=== PATIENT | female | born 1950 | race Two or more races ===

== ENCOUNTER 2019-03-07 13:21 | Inpatient (IN) | payer MEDICARE, MEDICAID ==
[~2019-03-07] VITALS: Ht 165.1 cm; Wt 93.9 kg
--- NOTE | 2019-03-07 13:34 | NUR ---
BIB [facility] FROM HOME, C/O GENERALIZED BODY ACHES AND L SIDED ABDOMINAL PAIN. ALSO NOT ABLE TO TAKE CARE OF HERSELF HENCE WANTS TO BE PLACED TO A SNF. ALSO RAN OUT OF MEDICATIONS. TO ER BED 4, HOOKED TO MONITOR, CHANGED TO GOWN, WARM BLANKET PROVIDED. AWAITING MD [place].
--- NOTE | 2019-03-07 13:34 | NUR ---
MACHINE MAINTENANCE MECHANIC DEGRASSE AT BEDSIDE
[2019-03-07 13:52] LABS: BASOPHILS # (AUTO) 0.1 /CMM (0.0-0.2); BASOPHILS % (AUTO) 0.7 % (0.0-2.0); HEMATOCRIT 37 % (33-45); LYMPHOCYTES % (AUTO) 26.1 % (20.0-44.0); MEAN CORPUSCULAR HGB CONC 33 g/dl (31.0-36.0); MEAN CORPUSCULAR VOLUME 87 fL (82-100); MONOCYTES # (AUTO) 0.5 /CMM (0.1-1.30); MONOCYTES % (AUTO) 6.3 % (2.0-12.0); NEUTROPHILS # (AUTO) 4.9 /CMM (1.8-8.9); NEUTROPHILS % (AUTO) 62.9 % (43.0-81.0); PLATELET COUNT (AUTO) 247 /CMM (150-450); RED BLOOD CELL COUNT(AUTO) 4.25 MIL/uL (4.0-5.2); WHITE BLOOD COUNT (AUTO) 7.8 K/uL (4.3-11.0)
[2019-03-07] MEDS ORDERED: IV NS 0.9% 1,000 ML BAG IV ONE (14:00)
[2019-03-07] MEDS ORDERED: AMLO5TAB9 PO (14:01)
[2019-03-07] MEDS ORDERED: PRAV20TA4 PO (14:01)
[2019-03-07] MEDS ORDERED: OMEP40CA13 PO (14:01)
[2019-03-07] MEDS ORDERED: TRAZ-214 PO (14:01)
[2019-03-07] MEDS ORDERED: ALBU18HF2 IH (14:01)
[2019-03-07] MEDS ORDERED: METF-442 PO (14:01)
[2019-03-07] MEDS ORDERED: CYCL5TAB PO (14:01)
[2019-03-07] MEDS ORDERED: PROP20TA7 PO (14:01)
[2019-03-07] MEDS ORDERED: LOSA100T31 PO (14:01)
[2019-03-07] MEDS ORDERED: SITA100T PO (14:01)
[2019-03-07] MEDS ORDERED: CLOP75TA15 PO (14:01)
[2019-03-07] MEDS ORDERED: DOCU-141 PO (14:01)
[2019-03-07] MEDS ORDERED: MULT-447 PO (14:01)
[2019-03-07] MEDS ORDERED: METF-440 PO (14:01)
[2019-03-07] MEDS ORDERED: NYST15CR TP (14:01)
[2019-03-07] MEDS ORDERED: TRIA80OI TP (14:01)
[2019-03-07] MEDS ORDERED: POTA10TA15 PO (14:01)
[2019-03-07] MEDS ORDERED: ACET-868 PO (14:01)
[2019-03-07] MEDS ORDERED: LORA1TAB PO (14:01)
[2019-03-07] MEDS ORDERED: DULO60CA45 PO (14:01)
--- NOTE | 2019-03-07 14:01 | NUR ---
WHEELED OUT VIA RNEY FOR CT SCAN
[2019-03-07] MEDS ORDERED: INSU100V10 SQ (14:03)
[2019-03-07] MEDS ORDERED: INSU100V11 SQ (14:03)
[2019-03-07 14:06] LABS: CALCIUM, SERUM 9.2 mg/dL (8.5-10.1); CREATININE 0.5 mg/dL (0.6-1.3); POTASSIUM 4.4 mmol/L (3.5-5.1)
[2019-03-07 14:12] LABS: ALBUMIN 3.2 g/dL (3.4-5.0); BILIRUBIN,DIRECT 0.1 mg/dL (0.0-0.2); BILIRUBIN,TOTAL 0.4 mg/dL (0.2-1.0); TOTAL PROTEIN, SERUM 6.9 g/dL (6.4-8.2)
--- NOTE | 2019-03-07 14:40 | NUR ---
URINE SAMPLE COLLECTED VIA STRAIGHT CATHETER, SENT TO LAB
[2019-03-07 14:56] LABS: APPEARANCE,URINE Slightly Cloudy (CLEAR); BILIRUBIN,URINE Negative (NEGATIVE); BLOOD, URINE Trace-intact Ery/uL (NEGATIVE); COLOR,URINE Yellow (YELLOW); KETONES,URINE Negative (NEGATIVE); LEUKOCYTE ESTERASE ,URINE Trace (NEGATIVE); NITRITE, URINE Positive (NEGATIVE); PH,URINE 6.5 (5.0-8.0); PROTEIN,URINE Trace mg/dl (NEGATIVE); UGLUCOSE Negative (NEGATIVE); UROBILINOGEN,URINE 0.2 EU/dL (0.2)
[2019-03-07 15:08] LABS: BACTERIA,URINE Many /HPF (None Seen); WBC,URINE 21-50 /HPF (0-3)
[2019-03-07 15:09] LABS: SQUAMOUS EPITHELIAL CELL,UR Moderate /HPF (None Seen)
[2019-03-07] MEDS ORDERED: CEFTRIAXONE 1GM BAG (ER ONLY) 50 ML IV ONE (15:28)
[2019-03-07] MEDS ORDERED: CEFTRIAXONE 1GM BAG (ER ONLY) 1 GM/50 ML PIGGYBACK IV ONE (15:30)
--- NOTE | 2019-03-07 15:30 | NUR ---
[facility] PAGED- REFRIGERATION SPECIALIST - TERRY CHUN
--- NOTE | 2019-03-07 15:48 | NUR ---
Reyes oglesby in [facility] - 03/07/19 at 1548 by MALLY REPORT GIVEN TO BLANCA OF MS UNIT
[2019-03-07] MEDS ORDERED: ACETAMINOPHEN ES 500 MG TABLET ONE (15:53)
[2019-03-07] MEDS ORDERED: ACETAMINOPHEN ES 500 MG TABLET PO ONE (16:00)
--- NOTE | 2019-03-07 16:13 | NUR ---
REPORT GIVEN TO DANIELE OF MS UNIT
[2019-03-07 16:30] VITALS: BP 120/65
[2019-03-07] MEDS ORDERED: HYDROCODONE/APAP 5/325MG 1 EACH TABLET PO PRN (16:30)
[2019-03-07] MEDS ORDERED: TRIAMCINOLONE OINT 0.1% 15 GM TUBE TP PRN (16:30)
[2019-03-07] MEDS ORDERED: MAG HYDROX/AL HYDROX/SIMETH 30 ML UDC PO PRN (16:30)
[2019-03-07] MEDS ORDERED: ONDANSETRON HCL/PF 4 MG/2 ML VIAL IVP PRN (16:30)
[2019-03-07] MEDS ORDERED: Z GUARD REMEDY 2 OZ OINT TP PRN (16:30)
[2019-03-07] MEDS ORDERED: ZOLPIDEM TARTRATE 5 MG TABLET PO PRN (16:30)
[2019-03-07] MEDS ORDERED: MAGNESIUM HYDROXIDE 30 ML UDC PO PRN (16:30)
[2019-03-07] MEDS ORDERED: ACETAMINOPHEN 325 MG TABLET PO PRN (16:30)
[2019-03-07] MEDS ORDERED: NYSTATIN CREAM 15 GM TUBE TP PRN (16:30)
--- NOTE | 2019-03-07 16:30 | NUR ---
MS RN NOTES RECEIVED PATIENT FROM ER VIA [facility] DX UTI PER DR. STEWART, ALERT/ORIENTED X 4, ON ROOM AIR, NO SOB, RESPIRATION UNLABORED. DENIED PAIN OR DISCOMFORT AT THIS TIME. LEFT AC G20 FLUSHES WELL. SITE CLEAR. SKIN INTACT, BED REST FOR NOW, PER PATIENT, SHE CANT AMBULATE. ON DIAPER,CARDIAC/CCHO 60 ADA STD DIET. UNIT ORIENTATION AND USE OF CALL LIGHT DONE. BED LOW LOCKED, SAFETY MEASURES IN PLACE. VITAL SIGN TAKEN, STABLE. INSTRUCTED TO CALL FOR ASSISTANCE. WILL CONT TO MONITOR.
[2019-03-07] MEDS: METFORMIN 500 MG TABLET PO SCH (17:32)
[2019-03-07] MEDS: CLOPIDOGREL BISULFATE 75 MG TABLET PO SCH (17:32)
[2019-03-07] MEDS: PROPRANOLOL HCL 10 MG TABLET PO SCH (17:32)
[2019-03-07] MEDS: LOSARTAN POTASSIUM 50 MG TABLET PO SCH (17:32)
[2019-03-07 18:01] VITALS: BP 120/65
--- NOTE | 2019-03-07 19:20 | NUR ---
MS/RN NOTES RECEIVED PT. SITTING UP IN BED. PT. IS AWAKE, ALERT AND ORIENTED X3. BREATHING EVEN AND UNLABORED ON ROOM AIR. NO SOB, RESPIRATORY DISTRESS OR COMPLAINTS OF PAIN NOTED AT THIS TIME. PT. WITH RIGHT AC 20 GAUGE IV SALINE LOCK PRESENT, PATENT AND INTACT. SAFETY AND ASPIRATION PRECAUTIONS IMPLEMENTED AND IN PLACE. BED LOCKED AND IN LOWEST POSITION, SIDE RAILS UP X3, BED ALARM ON, CALL LIGHT WITHIN REACH, WILL CONTINUE TO MONITOR.
--- NOTE | 2019-03-07 19:27 | NUR ---
MS RN NOTES ALL NEEDS ATTENDED. PATIENT RESTING. NOT IN ANY DISTRESS, NO PAIN. SAFETY MEASURES IN PLACE. CALL LIGHT WITHIN REACH. ENDORSED TO ALEXI FAUSTIN FOR JIMMY.
[2019-03-07] MEDS ORDERED: ALBUTEROL FS 2.5 MG/0.5 ML VIAL.NEB NEB PRN (19:30)
--- NOTE | 2019-03-07 21:52 | NUR ---
MS/RN NOTES CALLED AND NOTIFIED [facility] CORRUGATOR HELPER PT. IS DIABETIC AND ORDERED INSULIN LANTUS 60 UNITS HS, AND PT. TAKES METFORMIN BID AND TRADJENTA DAILY AND HAS NO ACCUCHECKS ORDERED. PER [facility] CORRUGATOR HELPER DR. DAWN NEW ORDERS: ACCUCHECKS ACHS WITH MILD SLIDING SCALE. WILL CARRY OUT ORDERS. WILL CONTINUE TO MONITOR.
[2019-03-07] MEDS: AMLODIPINE BESYLATE 5 MG TABLET PO SCH (22:00)
[2019-03-07] MEDS ORDERED: DEXTROSE 50%-WATER 50 ML DISP.SYRIN IV PRN (22:00)
[2019-03-07] MEDS: LORAZEPAM 1 MG TABLET PO SCH (22:11)
[2019-03-07] MEDS: CYCLOBENZAPRINE 10 MG TABLET PO SCH (22:11)
[2019-03-07] MEDS: TRAZODONE 50 MG TABLET PO SCH (22:11)
[2019-03-07] MEDS: DOCUSATE SODIUM 100 MG CAPSULE PO SCH (22:11)
[2019-03-07] MEDS: BLOOD SUGAR DIAGNOSTIC 1 EACH STRIP IN SCH (22:12)
[2019-03-07] MEDS: INSULIN GLARGINE, 100 UNIT/ML CARTRIDGE SQ SCH (22:13)
[2019-03-07] MEDS: INSULIN REGULAR, HUMAN 100 UNIT/ML 3 ML VIAL SQ PRN (22:14)
[2019-03-07] MEDS: ACETAMINOPHEN 325 MG TABLET PO PRN (22:23)
[2019-03-08 06:33] LABS: CALCIUM, SERUM 8.4 mg/dL (8.5-10.1); CREATININE 0.5 mg/dL (0.6-1.3); MAGNESIUM 1.4 mg/dL (1.8-2.4); PHOSPHORUS 4.1 mg/dL (2.5-4.9); POTASSIUM 4.4 mmol/L (3.5-5.1)
--- NOTE | 2019-03-08 06:49 | NUR ---
MS/RN NOTES PT. IS LYING IN BED RESTING. BREATHING EVEN AND UNLABORED ON ROOM AIR. NO SOB, RESPIRATORY DISTRESS OR COMPLAINTS OF PAIN NOTED AT THIS TIME AND THROUGHOUT SHIFT. NO S/S OF HYPO/HYPERGLYCEMIA NOTED AT THIS TIME AND THROUGHOUT SHIFT. PT. WITH RIGHT AC 20 GAUGE IV SALINE LOCK PRESENT, PATENT AND INTACT. ALL PT. NEEDS MET. SAFETY AND ASPIRATION PRECAUTIONS IMPLEMENTED AND IN PLACE. BED LOCKED AND IN LOWEST POSITION, SIDE RAILS UP X3, BED ALARM ON, CALL LIGHT WITHIN REACH, WILL ENDORSE TO DAYSHIFT NURSE FOR CONTINUITY OF CARE.
--- NOTE | 2019-03-08 07:00 | NUR ---
MS/RN OPENING NOTES RECEIVED REPORT AT [facility]. PT ASLEEP. BREATHING EVEN AND UNLABORED ON ROOM AIR. NO SOB, RESPIRATORY DISTRESS AT THIS TIME. RIGHT AC 20 GAUGE IV SALINE LOCK PATENT, INTACT AND FLUSHED WELL. SAFETY AND ASPIRATION PRECAUTIONS IMPLEMENTED AND IN PLACE. BED LOCKED AND IN LOWEST POSITION, SIDE RAILS UP X3, BED ALARM ON, CALL LIGHT WITHIN REACH. WILL CONT' TO MONITOR.
[2019-03-08 08:00] VITALS: BP 130/72
[2019-03-08] MEDS: PANTOPRAZOLE 40 MG TABLET.DR PO SCH (08:08)
[2019-03-08] MEDS: BLOOD SUGAR DIAGNOSTIC 1 EACH STRIP IN SCH ×4 (08:18→22:08)
[2019-03-08] MEDS: INSULIN REGULAR, HUMAN 100 UNIT/ML 3 ML VIAL SQ PRN ×4 (08:21→21:50)
[2019-03-08] MEDS: ATORVASTATIN 10 MG TABLET PO SCH (08:21)
[2019-03-08] MEDS: MULTIVIT W/MINERALS 1 TAB TABLET PO SCH (08:21)
[2019-03-08] MEDS: LINAGLIPTIN 5 MG TABLET PO SCH (08:21)
[2019-03-08] MEDS: METFORMIN 500 MG TABLET PO SCH ×2 (08:22→17:10)
[2019-03-08] MEDS: POTASSIUM CHLORIDE 10 MEQ TABLET.SA PO SCH (08:22)
[2019-03-08] MEDS: DULOXETINE HCL 30 MG CAPSULE.DR PO SCH ×2 (08:22→21:54)
[2019-03-08] MEDS: LOSARTAN POTASSIUM 50 MG TABLET PO SCH (08:23)
[2019-03-08] MEDS: PROPRANOLOL HCL 10 MG TABLET PO SCH ×2 (08:23→17:11)
[2019-03-08 08:27] LABS: BASOPHILS # (AUTO) 0.1 /CMM (0.0-0.2); BASOPHILS % (AUTO) 1.3 % (0.0-2.0); EOSINOPHILS % (AUTO) 5.8 % (0.0-6.0); HEMATOCRIT 36 % (33-45); HEMOGLOBIN 11.7 g/dL (11.5-14.8); LYMPHOCYTES # (AUTO) 2.6 /CMM (0.8-4.8); LYMPHOCYTES % (AUTO) 43.1 % (20.0-44.0); MEAN CORPUSCULAR HGB CONC 33 g/dl (31.0-36.0); MEAN CORPUSCULAR VOLUME 87 fL (82-100); MONOCYTES # (AUTO) 0.5 /CMM (0.1-1.30); MONOCYTES % (AUTO) 7.8 % (2.0-12.0); NEUTROPHILS # (AUTO) 2.6 /CMM (1.8-8.9); PLATELET COUNT (AUTO) 212 /CMM (150-450); RED BLOOD CELL COUNT(AUTO) 4.11 MIL/uL (4.0-5.2); WHITE BLOOD COUNT (AUTO) 6.1 K/uL (4.3-11.0)
--- NOTE | 2019-03-08 08:30 | NUR ---
MS RN NOTE PT A/OX3. PATIENT HAS BLURRY VISION ON RIGHT EYE DUE TO CATARACT.
[2019-03-08] MEDS: Magnesium 1GM/D5W 100ML PREMIX 100 ML IV SCH ×4 (10:23→14:35)
--- NOTE | 2019-03-08 14:20 | NUR ---
MS RN NOTE PT HAD PT EVALVE. HIGH COMPLEX. ACCORDING TO PATIENT, SHE HAS NOT WALKED FOR ALMOST ONE YEAR.
[2019-03-08] MEDS: CEFTRIAXONE 1 G in IV D5W 50 ML IV SCH (15:36)
[2019-03-08 16:00] VITALS: BP 129/63
[2019-03-08] MEDS: CLOPIDOGREL BISULFATE 75 MG TABLET PO SCH (17:10)
--- NOTE | 2019-03-08 19:02 | NUR ---
MS RN CLOSING NOTE PT AWAKE. NO SIGN OF RESPIRATORY DISTRESS OR SOB AT THIS TIME. DENIES PAIN. ALL NEEDS ATTENDANT. NO SIGNIFICANT CHANGE DURING THE SHIFT. SAFETY MEASURE IN PLACE. BED LOCKED AND LOW. SIDE RAILS UP X3, CALL LIGHT IN REACH. WILL ENDORSE TO THE PM NURSE FOR JIMMY.
--- NOTE | 2019-03-08 19:30 | NUR ---
MS RN OPENING NOTES: RECEIVED PATIENT AWAKE, ALERT AND ORIENTED X4. BEDREST. NO COMPLAIN OF PAIN. NO SOB NOTED. CALL LIGHT WITHIN REACH. BED IN LOWEST AND LOCKED POSITION. CALL LIGHT WITHIN REACH.
[2019-03-08 20:00] VITALS: BP 130/69
[2019-03-08] MEDS: INSULIN GLARGINE, 100 UNIT/ML CARTRIDGE SQ SCH (21:52)
[2019-03-08] MEDS: DOCUSATE SODIUM 100 MG CAPSULE PO SCH (21:54)
[2019-03-08] MEDS: CYCLOBENZAPRINE 10 MG TABLET PO SCH (21:54)
[2019-03-08] MEDS: LORAZEPAM 1 MG TABLET PO SCH (21:54)
[2019-03-08] MEDS: TRAZODONE 50 MG TABLET PO SCH (21:54)
[2019-03-08] MEDS: AMLODIPINE BESYLATE 5 MG TABLET PO SCH (21:55)
[2019-03-09 04:22] VITALS: BP 110/58
--- NOTE | 2019-03-09 07:36 | NUR ---
MS RN CLOSING NOTES: PATIENT IS RESTING COMFORTABLY IN BED. NO COMPLAIN OF PAIN. RESTED THROUGHOUT THE NIGHT. NO ACUTE EVENTS OVERNIGHT. BEDREST. CALL LIGHT WITHIN REACH. BED IN LOWEST AND LOCKED POSITION. BED ALARM ON.
[2019-03-09 07:37] LABS: BASOPHILS # (AUTO) 0.1 /CMM (0.0-0.2); BASOPHILS % (AUTO) 0.7 % (0.0-2.0); EOSINOPHILS % (AUTO) 6.5 % (0.0-6.0); HEMATOCRIT 33 % (33-45); LYMPHOCYTES # (AUTO) 2.4 /CMM (0.8-4.8); LYMPHOCYTES % (AUTO) 35.3 % (20.0-44.0); MEAN CORPUSCULAR HGB CONC 33 g/dl (31.0-36.0); MEAN CORPUSCULAR VOLUME 87 fL (82-100); MONOCYTES # (AUTO) 0.4 /CMM (0.1-1.30); MONOCYTES % (AUTO) 5.8 % (2.0-12.0); NEUTROPHILS # (AUTO) 3.5 /CMM (1.8-8.9); NEUTROPHILS % (AUTO) 51.7 % (43.0-81.0); PLATELET COUNT (AUTO) 222 /CMM (150-450); RED BLOOD CELL COUNT(AUTO) 3.86 MIL/uL (4.0-5.2); WHITE BLOOD COUNT (AUTO) 6.7 K/uL (4.3-11.0)
[2019-03-09] MEDS: PANTOPRAZOLE 40 MG TABLET.DR PO SCH (07:48)
[2019-03-09] MEDS: BLOOD SUGAR DIAGNOSTIC 1 EACH STRIP IN SCH ×4 (07:59→21:33)
[2019-03-09 08:00] VITALS: BP 120/64
[2019-03-09] MEDS: INSULIN REGULAR, HUMAN 100 UNIT/ML 3 ML VIAL SQ PRN ×4 (08:02→21:41)
[2019-03-09 08:07] LABS: PREALBUMIN 24.1 MG/DL (18.0-35.7)
[2019-03-09 08:15] LABS: CALCIUM, SERUM 8.3 mg/dL (8.5-10.1); CREATININE 0.4 mg/dL (0.6-1.3); POTASSIUM 4.2 mmol/L (3.5-5.1)
[2019-03-09] MEDS: LOSARTAN POTASSIUM 50 MG TABLET PO SCH (09:49)
[2019-03-09] MEDS: ATORVASTATIN 10 MG TABLET PO SCH (09:49)
[2019-03-09] MEDS: PROPRANOLOL HCL 10 MG TABLET PO SCH ×2 (09:50→18:56)
[2019-03-09] MEDS: METFORMIN 500 MG TABLET PO SCH ×2 (09:50→18:54)
[2019-03-09] MEDS: POTASSIUM CHLORIDE 10 MEQ TABLET.SA PO SCH (09:50)
[2019-03-09] MEDS: MULTIVIT W/MINERALS 1 TAB TABLET PO SCH (09:50)
[2019-03-09] MEDS: DULOXETINE HCL 30 MG CAPSULE.DR PO SCH ×2 (09:51→20:19)
[2019-03-09] MEDS: LINAGLIPTIN 5 MG TABLET PO SCH (09:51)
--- NOTE | 2019-03-09 10:20 | NUR ---
MS/RN OPENING NOTES RECEIVED REPORT AT [facility]ESIDE. PT A/OX3. BREATHING EVEN AND UNLABORED ON ROOM AIR. NO SOB, RESPIRATORY DISTRESS AT THIS TIME. RIGHT AC 20 GAUGE IV SALINE LOCK PATENT, INTACT AND FLUSHED WELL. SAFETY AND ASPIRATION PRECAUTIONS IMPLEMENTED AND IN PLACE. BED LOCKED AND IN LOWEST POSITION, SIDE RAILS UP X3, BED ALARM ON, CALL LIGHT WITHIN REACH. HOB ELEVATED. WILL CONT' TO MONITOR.
[2019-03-09] MEDS ORDERED: CALCIUM CARBONATE 500 MG TAB.CHEW PO PRN (10:30)
[2019-03-09] MEDS: Magnesium 1GM/D5W 100ML PREMIX 100 ML IV SCH ×2 (11:46→13:09)
[2019-03-09] MEDS: CEFTRIAXONE 1 G in IV D5W 50 ML IV SCH (14:40)
[2019-03-09 16:00] VITALS: BP 120/60
[2019-03-09] MEDS: CLOPIDOGREL BISULFATE 75 MG TABLET PO SCH (18:54)
--- NOTE | 2019-03-09 19:05 | NUR ---
RN MS OPENING NOTES RECEIVED PATIENT IN BED AWAKE ALERT AND ORIENTED X 4 RESPIRATIONS EVEN AND UNLABORED WITH EQUAL RISE AND FALL OF CHEST, DENIES ANY PAIN OR DISCOMFORT AT THIS TIME, IV SITE TO RIGHT AC #20 SL INTACT AND PATENT, NO REDNESS,NO INFILTRATION PRESENT, ORIENTED TO STAFF AND CALL LIGHT AND KEPT WITHIN REACH, SAFETY PRECAUTIONS IN PLACE, LOW BED AND LOCKED BED ALARM IN PLACE, FLUIDS,TOILETING NEEDS AND REPOSITIONING OFFERED, DISCUSSED PLAN OF CARE ALL NEEDS ATTENDED AT THIS TIME WILL CONTINUE TO MONITOR NEEDS.
--- NOTE | 2019-03-09 19:54 | NUR ---
MS RN CLOSING NOTE PT AWAKE. NO SIGN OF RESPIRATORY DISTRESS OR SOB AT THIS TIME. DENIES PAIN. ALL NEEDS ATTENDANT. NO SIGNIFICANT CHANGE DURING THE SHIFT. SAFETY MEASURE IN PLACE. BED LOCKED AND LOW. SIDE RAILS UP X3, CALL LIGHT IN REACH. ENDORSED TO THE PM NURSE FOR JIMMY.
[2019-03-09 20:00] VITALS: BP 130/44
[2019-03-09] MEDS: LORAZEPAM 1 MG TABLET PO SCH (21:28)
[2019-03-09] MEDS: TRAZODONE 50 MG TABLET PO SCH (21:28)
[2019-03-09] MEDS: DOCUSATE SODIUM 100 MG CAPSULE PO SCH (21:28)
[2019-03-09] MEDS: AMLODIPINE BESYLATE 5 MG TABLET PO SCH (21:29)
[2019-03-09] MEDS: CYCLOBENZAPRINE 10 MG TABLET PO SCH (21:29)
[2019-03-09] MEDS: INSULIN GLARGINE, 100 UNIT/ML CARTRIDGE SQ SCH (21:35)
[2019-03-09 22:00] VITALS: BP 124/63
[2019-03-09] MEDS: ACETAMINOPHEN 325 MG TABLET PO PRN (22:36)
--- NOTE | 2019-03-09 22:47 | NUR ---
RN MS NOTES PATIENT COMPLAINT OF ACHING PAIN TO BACK 5/10, REQUESTING FOR TYLENOL PRN GIVEN ORDERED. OFFERED REPOSITIONING WILL CONTINUE TO MONITOR.
[2019-03-10 04:00] VITALS: BP_SYST 123; BP_SYST 97; BP_DIAS 59; BP_DIAS 62
--- NOTE | 2019-03-10 06:30 | NUR ---
RN MS CLOSING NOTES PATIENT IN BED SLEEPING BUT EASILY AROUSABLE,ALERT AND ORIENTED X 4, VERBALLY RESPONSIVE, RESPIRATIONS EVEN AND UNLABORED WITH EQUAL RISE AND FALL OF CHEST, DENIES ANY PAIN OR DISCOMFORT AT THIS TIME, IV SITE TO RIGHT AC #20 SL INTACT AND PATENT, NO REDNESS,NO INFILTRATION PRESENT, CALL LIGHT KEPT WITHIN REACH, SAFETY PRECAUTIONS IN PLACE, LOW BED AND LOCKED BED ALARM IN PLACE, FLUIDS,TOILETING NEEDS AND REPOSITIONING OFFERED THROUGHOUT SHIFT. ALL NEEDS ATTENDED AT THIS TIME WILL CONTINUE TO MONITOR NEEDS AND ENDORSE TO NEXT SHIFT, REMAINS COMFORTABLE.
[2019-03-10] MEDS: BLOOD SUGAR DIAGNOSTIC 1 EACH STRIP IN SCH ×4 (07:52→22:15)
[2019-03-10 08:00] VITALS: BP 113/49
--- NOTE | 2019-03-10 08:00 | NUR ---
MS RN NOTES RECEIVED PT SLEEPING IN BED. SHE WAS ABLE TO AROUSE WHEN NAME CALLED. A/O X 4 , COOPERATIVE. NO SOB OR DISCOMFORT NOTED AT THIS TIME. ALL SAFETY MEASURES IMPLEMENTED, BED AT THE LOWEST POSITION LOCKED, CALL LIGHT WITHIN REACH. RAC FLUSHED DWELL AND PATENT. WILL CONTINUE TO MONITOR.
[2019-03-10] MEDS: POTASSIUM CHLORIDE 10 MEQ TABLET.SA PO SCH (08:11)
[2019-03-10] MEDS: DULOXETINE HCL 30 MG CAPSULE.DR PO SCH ×2 (08:12→21:48)
[2019-03-10] MEDS: PANTOPRAZOLE 40 MG TABLET.DR PO SCH (08:12)
[2019-03-10] MEDS: MULTIVIT W/MINERALS 1 TAB TABLET PO SCH (08:12)
[2019-03-10] MEDS: ATORVASTATIN 10 MG TABLET PO SCH (08:14)
[2019-03-10] MEDS: LINAGLIPTIN 5 MG TABLET PO SCH (08:14)
[2019-03-10] MEDS: METFORMIN 500 MG TABLET PO SCH ×2 (08:14→17:13)
[2019-03-10] MEDS: PROPRANOLOL HCL 10 MG TABLET PO SCH ×2 (08:17→17:14)
[2019-03-10] MEDS: LOSARTAN POTASSIUM 50 MG TABLET PO SCH (08:17)
--- NOTE | 2019-03-10 08:31 | NUR ---
MS RN NOTES RECEIVED PT SLEEPING IN BED. ABLE TO AROUSE WHEN NAME CALLED. A/OX4. NO SIGNS OF DISTRESS OR SOB , PAIN NOTED AT THIS TIME. RIGHT IV ACCESS FLUSHED WELL AND PATENT.ALL SAFETY MEASURES OBSERVED. BED AT THE LOWEST POSITION LOCKED SIDE RAILS UPX2. CALL LIGHT WITHIN CLOSE REACH. WILL CONTINUE TO MONITOR. PT BP MED HELD DUE TO BP 113/49 [id number]. Addendum: 03/10/19 at 1552 by NELI CASTRO RN IGNORE THE NOTE DOUBLED
[2019-03-10 08:35] LABS: CALCIUM, SERUM 8.5 mg/dL (8.5-10.1); CREATININE 0.5 mg/dL (0.6-1.3); MAGNESIUM 1.6 mg/dL (1.8-2.4)
[2019-03-10] MEDS: INSULIN REGULAR, HUMAN 100 UNIT/ML 3 ML VIAL SQ PRN ×3 (08:38→22:28)
[2019-03-10] MEDS: Magnesium 1GM/D5W 100ML PREMIX 100 ML IV SCH ×2 (11:21→13:08)
[2019-03-10 12:00] VITALS: BP 113/49
[2019-03-10] MEDS: CEFTRIAXONE 1 G in IV D5W 50 ML IV SCH (14:10)
[2019-03-10 16:00] VITALS: BP 133/71
[2019-03-10] MEDS: CLOPIDOGREL BISULFATE 75 MG TABLET PO SCH (17:14)
[2019-03-10] MEDS: ACETAMINOPHEN 325 MG TABLET PO PRN (18:30)
--- NOTE | 2019-03-10 19:30 | NUR ---
MS RN NOTES PT IN BED SITTING AWAKE. NO SOB AND DISCOMFORT NOTED AT THIS TIME. IV SL FLUSHED AND PATENT. ALL NEEDS ATTENTED. CALL LIGHT WITHIN REACH . ENDORSED TO LEAD DESIGNER NURSE FOR JIMMY.
--- NOTE | 2019-03-10 19:30 | NUR ---
MS RN NOTE PATIENT RECEIVED IN BED HIGH FOWLERS WATCHING TV. PATIENT HAS NO S/S OF DISTRESS NOTED AT THIS TIME. BREATHING EVEN AND UNLABORED. PATIENT DENIES SOB/CHEST PAIN/ PAIN. CALL LIGHT WITHIN REACH. BED IN LOWEST LOCKED POSITION. SAFETY PRECATIONS IN PLACE. PATIENT REPOSITIONED FOR COMFORT. RN WILL CONTINUE TO MONITOR.
[2019-03-10 20:00] VITALS: BP 130/62
[2019-03-10] MEDS: TRAZODONE 50 MG TABLET PO SCH (22:16)
[2019-03-10] MEDS: DOCUSATE SODIUM 100 MG CAPSULE PO SCH (22:16)
[2019-03-10] MEDS: CYCLOBENZAPRINE 10 MG TABLET PO SCH (22:16)
[2019-03-10] MEDS: LORAZEPAM 1 MG TABLET PO SCH (22:16)
[2019-03-10] MEDS: AMLODIPINE BESYLATE 5 MG TABLET PO SCH (22:17)
[2019-03-10] MEDS: INSULIN GLARGINE, 100 UNIT/ML CARTRIDGE SQ SCH (22:27)
--- NOTE | 2019-03-10 23:31 | NUR ---
MS RN NOTE PER PATIENT REQUEST PATIENT CODE STATUS CHANGE FROM FULL CODE TO DNR/DNI. EPIC PEST CONTROLLER DOCTORLÓPEZ NOTIFIED. POLST SIGNED BY PATIENT AND PLACED IN CHART. WILL ENDORSE TO DAY SHIFT TO HAVE MD SIGN POLST.
[2019-03-11 04:00] VITALS: BP 124/64
--- NOTE | 2019-03-11 07:15 | NUR ---
MS RN OPENING NOTE RECEIVED REPORT FROM NOC SHIFT NURSE. PT ASLEEP IN BED, ON ROOM AIR, SATURATING WELL, RESPIRATIONS EASY AND UNLABORED, NO SIGNS OF RESPIRATORY DISTRESS NOTED. IV SITE ON RIGHT AC G20 PATENT, WITH SALINE LOCK. BED IN LOW POSITION, LOCKED, CALL LIGHT WITHIN REACH.
[2019-03-11] MEDS: PANTOPRAZOLE 40 MG TABLET.DR PO SCH (07:21)
[2019-03-11] MEDS: BLOOD SUGAR DIAGNOSTIC 1 EACH STRIP IN SCH ×2 (07:28→12:39)
[2019-03-11] MEDS: INSULIN REGULAR, HUMAN 100 UNIT/ML 3 ML VIAL SQ PRN ×2 (07:31→12:42)
[2019-03-11 07:55] LABS: CALCIUM, SERUM 8.9 mg/dL (8.5-10.1); CREATININE 0.4 mg/dL (0.6-1.3); MAGNESIUM 1.5 mg/dL (1.8-2.4); POTASSIUM 3.9 mmol/L (3.5-5.1)
[2019-03-11 08:00] VITALS: BP 136/57
[2019-03-11 08:31] LABS: BASOPHILS % (AUTO) 0.6 % (0.0-2.0); EOSINOPHILS % (AUTO) 6.6 % (0.0-6.0); HEMATOCRIT 34 % (33-45); HEMOGLOBIN 11.3 g/dL (11.5-14.8); LYMPHOCYTES # (AUTO) 2.2 /CMM (0.8-4.8); MEAN CORPUSCULAR HGB CONC 33 g/dl (31.0-36.0); MEAN CORPUSCULAR VOLUME 86 fL (82-100); MONOCYTES # (AUTO) 0.4 /CMM (0.1-1.30); MONOCYTES % (AUTO) 6.4 % (2.0-12.0); NEUTROPHILS # (AUTO) 2.7 /CMM (1.8-8.9); NEUTROPHILS % (AUTO) 47.4 % (43.0-81.0); PLATELET COUNT (AUTO) 203 /CMM (150-450); RED BLOOD CELL COUNT(AUTO) 3.92 MIL/uL (4.0-5.2); WHITE BLOOD COUNT (AUTO) 5.6 K/uL (4.3-11.0)
[2019-03-11] MEDS: METFORMIN 500 MG TABLET PO SCH (09:07)
[2019-03-11] MEDS: LOSARTAN POTASSIUM 50 MG TABLET PO SCH (09:07)
[2019-03-11] MEDS: MULTIVIT W/MINERALS 1 TAB TABLET PO SCH (09:07)
[2019-03-11] MEDS: LINAGLIPTIN 5 MG TABLET PO SCH (09:07)
[2019-03-11] MEDS: ATORVASTATIN 10 MG TABLET PO SCH (09:07)
[2019-03-11] MEDS: DULOXETINE HCL 30 MG CAPSULE.DR PO SCH (09:08)
[2019-03-11 09:10] VITALS: BP 136/57
[2019-03-11] MEDS: PROPRANOLOL HCL 10 MG TABLET PO SCH (09:10)
[2019-03-11] MEDS: POTASSIUM CHLORIDE 10 MEQ TABLET.SA PO SCH (09:10)
[2019-03-11] MEDS: Magnesium 1GM/D5W 100ML PREMIX 100 ML IV SCH ×2 (12:00→12:39)
[2019-03-11] MEDS: CEFTRIAXONE 1 G in IV D5W 50 ML IV SCH (14:20)
--- NOTE | 2019-03-11 14:28 | NUR ---
GAVE TELEPHONE REPORT TO HIRAM FAUSTIN IN [facility]
--- NOTE | 2019-03-11 15:17 | NUR ---
REMOVED IV FROM RIGHT AC, DRESSING APPLIED. ALL DISCHARGE PAPERS SIGNED, BELONGINGS FORM SIGNED AND ALL BELONGINGS/VALUABLES ACCOUNTED FOR. GAVE REPORT TO ELOISA FROM [facility].
--- NOTE | 2019-03-11 15:30 | NUR ---
PT LEFT UNIT VIA GURNEY IN STABLE CONDITION
== END 2019-03-11 15:30 | DRG 690 ==
LOC: ER 13:23 → MEDSG1 15:50
PROVIDERS: ADMIT Family Medicine; ATTEND Family Medicine
DX: N39.0 Urinary tract infection, site not specified (principal); E44.1 Mild protein-calorie malnutrition; E78.5 Hyperlipidemia, unspecified; E11.65 Type 2 diabetes mellitus with hyperglycemia; R62.7 Adult failure to thrive; Z68.34 Body mass index [BMI] 34.0-34.9, adult; I11.0 Hypertensive heart disease with heart failure; I50.9 Heart failure, unspecified; F17.210 Nicotine dependence, cigarettes, uncomplicated; J44.9 Chronic obstructive pulmonary disease, unspecified; H40.9 Unspecified glaucoma; E88.09 Other disorders of plasma-protein metabolism, not elsewhere classified; R33.9 Retention of urine, unspecified; R32 Unspecified urinary incontinence; R29.6 Repeated falls; R53.1 Weakness; F29 Unspecified psychosis not due to a substance or known physiological condition; Z66 Do not resuscitate
CPT/HCPCS: 36415; 80048-TC; 80061-TC; 80076-TC; 81000-TC; 82962-TC; 83735-TC; 84100-TC; 84134-TC; 85025-TC; 87081-TC; 87086-TC; 87186-TC; 97112-TC; 97530-TC; G0378; J0696; J1815; J3475; J7030; J7050; J7060